=== PATIENT | male | born 1990 | race Caucasian/White ===

== ENCOUNTER 2024-01-17 11:00 | Emergency (ER) | payer OTHER, SELFPAY ==
[2024-01-17 11:11] VITALS: BP 154/85; PULSE 99; RESP 18; TEMP 36.9; O2SAT 99
--- NOTE | 2024-01-17 11:58 | ED.GENADULT ---
HPI - General Adult General Chief complaint: Skin/Abscess/Foreign Body Stated complaint: Rash Time Seen by Provider: 01/17/24 11:59 Source: patient Mode of arrival: ambulatory Limitations: no limitations History of Present Illness HPI narrative: 33-year-old male patient presents to the [facility] with complaints of a rash for the past 5 days. Patient states he works in [employer] and thinks he might have come into contact with something this past week. Patient states the rash started off on the small placed to the left arm there is spread significantly. Patient states it is very itchy denies fevers, body aches or chills. Denies any chest pain, shortness of breath or trouble breathing or swallowing. Denies any abdominal pain, nausea, vomiting or diarrhea. Patient states he has tried using some calamine lotion without relief. Related Data Home Medications Medication Instructions Recorded Confirmed losartan 50 mg tablet mg 01/17/24 Allergies Allergy/AdvReac Type Severity Reaction Status Date / Time No Known Allergies Allergy Verified 01/17/24 11:37 Review of Systems Review of Systems: CONSTITUTIONAL: Denies fever, chills, or sweats. EYES: Denies visual changes, redness, or discharge. ENT: Denies rhinorrhea, congestion, sore throat, or otalgia. CARDIOVASCULAR: Denies chest pain, palpitations, or edema. RESPIRATORY: Denies cough or dyspnea. GASTROINTESTINAL: Denies abdominal pain, nausea, vomiting, or diarrhea. GENITOURINARY: Denies dysuria or hematuria. SKIN: Positive rash with itching. MUSCULOSKELETAL: Denies back pain, joint pain, or myalgia. NEUROLOGIC: Denies headache, numbness, or weakness. PSYCHIATRIC: Denies anxiety or depression. FOR[facility], [facility] Past Medical History Medical History (Updated 01/17/24 @ 12:24 by SOTO Yeung) Hypertension Exam Narrative: GENERAL: Well-appearing, well-nourished, and in no acute distress. HEAD: Normocephalic, atraumatic. EYES: PERRLA and EOMI. ENT: Nares clear, no rhinorrhea or epistaxis. Mucous membranes moist. NECK: Supple. No lymphadenopathy CHEST: Clear to auscultation. No respiratory distress. HEART: Regular rate and rhythm. No murmur heard. Normal peripheral pulses. ABDOMEN: Soft, nontender, nondistended, normal active bowel sounds. EXTREMITIES: Normal range of motion. No edema. SKIN: patient has a blistery rash noted noted in various areas of the left arm, under the left axilla, the right arm and areas to the lower abdomen. There is a large erythemic area under the left axilla that is very warm to the touch but no open wounds drainage present. NEURO: No focal deficits. Alert and oriented x3. Course Course Level of Care: Express Care Visit Vital Signs Vital signs: Vital Signs Temperature 36.9 C 01/17/24 11:11 Pulse Rate 99 01/17/24 11:11 Respiratory Rate 18 01/17/24 11:11 Blood Pressure 154/85 H 01/17/24 11:11 Pulse Oximetry 99 01/17/24 11:11 Oxygen Delivery Room Air 01/17/24 11:11 Temperature 36.9 C 01/17/24 11:11 Pulse Rate 99 01/17/24 11:11 Respiratory Rate 18 01/17/24 11:11 Blood Pressure 154/85 H 01/17/24 11:11 Pulse Oximetry 99 01/17/24 11:11 Oxygen Delivery Room Air 01/17/24 11:11 Vital signs reviewed. The patient has been informed that they may have pre-hypertension or Hypertension based on a BP reading in the department. I recommend that the patient call the primary care provider listed on their discharge instructions or a physician of their choice this week to arrange follow up for further evaluation of possible pre-hypertension or Hypertension Medical Decision Making MDM Narrative Medical decision making narrative: Discussed with patient it does appear that he most likely has a poison [place] rash with secondary cellulitis infection. Plan of care patient is discharged home with oral steroids, oral antibiotics and a topical steroid ointment to help with itching. Patient verbalize
== END 2024-01-17 12:31 | disposition home or self-care (01) ==
PROVIDERS: Emergency Provider Nurse Practitioner Family; PCP Family Medicine Sports Medicine
DX: L23.7 Allergic contact dermatitis due to plants, except food (principal); L03.112 Cellulitis of left axilla; I10 Essential (primary) hypertension
CPT/HCPCS: 99203; G0463